=== PATIENT | male | born 1960 | race Caucasian/White ===

== ENCOUNTER 2024-09-16 05:43 | Inpatient (IN) | payer BC ==
[~2024-09-16] VITALS: Ht 188 cm; Wt 136.4 kg
[2024-09-16] VITALS (9 sets, daily range): BP systolic 112–142; BP diastolic 64–86; PULSE 69–96; RESP 14–21; TEMP 97.1–98; O2SAT 97–100
[2024-09-16 06:39] LABS: MEAN PLATELET VOLUME 8.4 FL (7.4-10.4); RED CELL DISTRIBUTION WIDTH 12.9 % (11.5-14.5)
--- NOTE | 2024-09-16 06:53 | Physician Documentation ---
History of Present Illness ~ Chief Complaint: Chest Pain Stated Complaint: SOB,CHEST PAIN Time Seen by MD: 06:26 Source: patient (6) HPI Patient comes in for evaluation of cough and chest pain. He reports he was on a fishing trip in [place], and has been sick all week, with a severe cough productive of green phlegm, sore throat, and some congestion. He also reports some shortness of breath, but this has been going on and worsening over the last six months or so. He saw While in [place], was put on an unknown antibiotic, which is dosed daily, and started taking them about five days ago. Patient flew home this morning to [place], and drove back to [place] from [place]. As he was arriving back in [facility] he began to have a heavy substernal chest pain which radiated into his back, and associated tightness in his throat, which came in waves. The back pain is now resolving. Patient has had some night sweats this week, does not know if he had a temperature, appears to have been afebrile at the doctor's office. He does not note any calf pain or asymmetrical swelling, or current edema, although he has had some edema over the last few months. No cardiac history, reports he had a negative stress test years ago,, patient takes testosterone. Pt takes 2 low dose aspirin daily Medication Reconciliation Allergies: Uncoded Allergies: SULFA (Adverse Reaction, Mild, 09/16/24) Scheduled Aspirin (Aspirin), 1 TAB PO DAILY, (Reported) Prednisone* (Prednisone*), 1 TAB PO BID, (Reported) Testosterone (Testosterone), 4 TOP DAILY, (Reported) Miscellaneous Medications Sumatriptan (Sumatriptan), (Reported) Past Medical History Past Medical History: Migraine Other Past Medical History: Morbid obesity, borderline diabetes, Smoking Status: Never smoker Alcohol Use: Occasionally Drug Use: none Review of Systems All Other Systems at this time: Reviewed and Negative Physical Exam Vital Signs: Temperature: 97.7, Heart Rate: 88, Respiratory Rate: 20, BP: 155/90, Pulse Oximetry: 98, Weight: 136.360 Oxygen Flow Rate: 0 Physical Exam General: Pt is awake, alert, oriented x4 in no acute distress and well appearing. Heart rate currently 79, blood pressure 144/85. Oxygen saturation 97% on room air. Head: Normocephalic and atraumatic. Eyes: Conjunctiva normal. ENT: Mucous membranes moist. Neck: Supple. Chest: There is no accessory muscle use or retractions. No cough appreciated, but patient reports he was having wrecking spasms of cough before I came into the room. He has some faint intermittent rhonchi, and some occasional end expiratory wheeze especially with cough. Cardiac: Regular rate and rhythm without murmurs, gallops or rubs. Palpation of the chest wall is normal. Abd: Soft, nondistended, obese, mildly tender in the left lower quadrant which he reports is chronic, with normoactive bowel sounds. No guarding or rebound. Extremities: Within normal limits without cyanosis, clubbing, or edema at this time. Skin: [place], warm and dry with no significant rash appreciated. Neuro: Cranial nerves II-XII grossly intact. The gait is normal. Progress Results/Orders Results/Orders Orders - ISACC MASTERSON MD Chest,Single View (09/16/24 06:30) Monitor (09/16/24 06:30) Saline Lock (09/16/24 06:30) Oxygen (09/16/24 06:30) Hs Troponin I W Calculations (09/16/24 08:30) Hs Troponin I W Calculations (09/16/24 09:30) Culture Blood (09/16/24 06:37) Page Hospitalist (09/16/24 07:01) Fill Out Med Reconciliation (09/16/24 07:01) Completed Orders - ISACC MASTERSON MD Chest,Single View (09/16/24 06:30) Cbc/Diff (09/16/24 06:30) BMP (09/16/24 06:30) PBNP (09/16/24 06:30) Hs Troponin I W Calculations (09/16/24 06:30) Lacticsepsis (09/16/24 06:37) D-Dimer (09/16/24 07:00) Medications Received in ER Medications (Trade) Dose Ordered Sig/Darian Route PRN Reason Start Time Stop Time Status Last Admin Dose Admin (Zofran 4mg/2ml vial) 4 mg Q6H PRN IV nausea/vomiting 09/16/24 07:35 09/16/24 07:53 4 MG Vital Signs 09/16/24 09/16/2425 05:56 06:35 06:51 Temp 97.7 Pulse 88 79 Resp 20 14 B/P (MAP) 155/90 144/86 (105) Pulse Ox 98 98 98 O2 Delivery Room Air* O2 Flow Rate 0 0 0 FiO2 21 Laboratory Tests Test 09/16/24 06:10 White Blood Count 9.0 Red Blood Count 5.38 Hemoglobin 16.5 Hematocrit 48.0 Mean Corpuscular Volume 89.2 Mean Corpuscular Hemoglobin 30.7 Mean Corpuscular Hemoglobin Concent 34.5 Red Cell Distribution Width 12.9 Platelet Count 203 Mean Platelet Volume 8.4 Neutrophils (%) (Auto) 67.0 Lymphocytes (%) (Auto) 21.7 Monocytes (%) (Auto) 7.5 Eosinophils (%) (Auto) 3.3 Basophils (%) (Auto) 0.5 Neutrophils # (Auto) 6.0 Lymphocytes # (Auto) 2.0 Monocytes # (Auto) 0.7 Eosinophils # (Auto) 0.3 Basophils # (Auto) 0.0 CBC Comment D-Dimer 1.83 H D-Dimer Comment Sodium Level 136 Potassium Level 3.5 Chloride Level 101 Carbon Dioxide Level 28.0 Anion Gap 7 L Blood Urea Nitrogen 17 Creatinine 1.16 H Estimated GFR/1.73 m2 64 BUN/Creatinine Ratio 14.7 Glucose Level 310 H Lactic Acid Level 1.2 Calcium Level 8.9 Troponin I High Sensitivity 5 Pro-B-Type Natriuretic Peptide 37 Albumin 3.5 Chemistry Comments EKG/XRAY/CT/US/VASC/MRI EKG : Indication: chest pain EKG Rate: 90 EKG: NSR, no ST T wave changes, ST elevation, abnormal Q waves EKG Blocks: none [place]: normal Consults/PCP Consults/PCP : Time Call Requested: 07:02 Consult Reason/Comments: Hospitalist Additional Comment [id number] Case d/w resident on Dr. Chua's service. He will evaluate for admission. Heart Score: Heart Score Response (Comments) Value History Highly Suspicious 2 EKG Normal 0 Age 45-64 1 Risk Factors 1 or 2 risk factors 1 Troponin Normal limit 0 Total 4 Medical Decision Making Additional Information Patient presenting with chest pain, cough, after recent out of town trip and long travel day. Immediate concerns include pulmonary embolism, acute coronary ischemia, pneumonia. Initial workup showing no signs of sepsis, chest x-ray clear without evidence of obvious infiltrate. Initial EKG nondiagnostic for any cardiac ischemia and 1st troponin within normal limits. Patient without any leg swelling or pain, is not significantly short of breath, has no tachycardia, tachypnea, or hypoxia to suggest pulmonary embolism, although testosterone use is a risk factor. Patient's D-dimer is currently pending. Patient to be admitted to the hospitalist service for further evaluation and management including serial troponins, cardiology consultation as indicated, and following up on further PE workup. Departure Time of Disposition: 07:03 Admitted to Inpatient Unit: yes, to hospitalist Impression: Primary Impression: Chest pain Qualified Codes: R07.9 - Chest pain, unspecified Additional Impression: Hyperglycemia Condition: Guarded Referrals: NO PRIMARY CARE PROVIDER (PCP) Education Educated: Patient Educated regarding: diagnosis, treatment Signature Scribe Signature: Attestation: ISACC MASTERSON MD Sep 16, 2024 06:53
--- NOTE | 2024-09-16 06:54 | RADIOLOGY REPORT ---
CHEST RADIOGRAPH Indication: CP Technique: Single frontal view of the chest was obtained Comparison: None IMPRESSION: Heart appears normal in size. The lungs appear clear without focal airspace opacity, effusion, or pn eumothorax. Left clavicular hardware.
[2024-09-16] MEDS ORDERED: ASPI-1265 PO (06:56)
[2024-09-16] MEDS ORDERED: PRED20TA PO (06:56)
[2024-09-16] MEDS ORDERED: TEST75GE10 TOP (06:56)
[2024-09-16] MEDS ORDERED: SUMA20SP8 (06:56)
[2024-09-16 06:59] LABS: CREATININE 1.16 MG/DL (0.60-1.10); PRO BRAIN NATRIURETIC PEPTIDE 37 PG/ML (0-125); TOTAL CARBON DIOXIDE 28.0 MMOL/L (24-32); eCRCL 77 ML/MIN; eGFR 64 ML/MIN
[2024-09-16] MEDS ORDERED: HYDROcodone/acetaminophen 10/325mg tab PO PRN (07:35)
[2024-09-16] MEDS ORDERED: potassium Cl 20 mEq SR tablet PO PRN ×2 (07:35)
[2024-09-16] MEDS ORDERED: magnesium Cl slow-release 64mg tablet PO PRN (07:35)
[2024-09-16] MEDS ORDERED: mag hydrox/Alum hydrox/simeth 30ml oral suspension PO PRN (07:35)
[2024-09-16] MEDS ORDERED: HYDROcodone/acetaminophen 5mg/325mg tablet PO PRN (07:35)
[2024-09-16] MEDS ORDERED: potassium Cl 40MEQ/1/2NS 520ml 520 ML IV PRN (07:35)
[2024-09-16] MEDS ORDERED: magnesium hydroxide 30ml (MOM) UD suspension PO PRN (07:35)
[2024-09-16] MEDS ORDERED: magnesium sulf-water 4G/100mL 100 ML IV PRN (07:35)
[2024-09-16] MEDS ORDERED: magnesium sulf-water 2g/50mL 50 ML IV PRN (07:35)
[2024-09-16] MEDS ORDERED: bisacodyl 10mg suppository rectal RC PRN (07:35)
[2024-09-16] MEDS ORDERED: metoprolol tartrate 1mg/ml inj IV PRN (07:40)
[2024-09-16] MEDS ORDERED: aminophylline 250mg/10ml inj. IV PRN (07:40)
[2024-09-16] MEDS: ondansetron/PF 4mg/2ml inj IV PRN (07:53)
[2024-09-16] MEDS: normal saline 1000ml 1,000 ML IV SCH (08:30)
--- NOTE | 2024-09-16 08:36 | RADIOLOGY REPORT ---
CTA Chest with intravenous contrast INDICATION: possible PE , elevated D-dimer COMPARISON: DI CHEST,SINGLE VIEW on DOS: 09/16/24 TECHNIQUE: Multidetector spiral CTA of the chest was performed of the chest with 100 cc of intravenou s contrast. PULMONARY ANGIOGRAPHY PROTOCOL was utilized using a bolus-tracking technique centered on the main pulmonary artery. Coronal and sagittal multiplanar and MIP reformats were performed. Radiation Dose : 1. Chest: CTDI volume is 24.9 mGy. Dose-length product is 970.2 mGy*cm The dose indicators for CT are the volume Computed Tomography (CT) Dose Index (CTDIvol) and the Dose Length Product (DLP), and are measured in units of mGy and mGy-cm, respectively. These indicators are not patient dose, but values generated from the CT scanner acquisition factors. The report includes radiation exposure data for exposures received during this examination. FINDINGS: Pulmonary artery: No central, lobar or proximal segmental pulmonary embolus. Lower neck: Unremarkable thyroid. Lungs: No consolidation or nodule. Central airways: Patent. Pleura: No pneumothorax. No pleural effusions. Heart/Vascular Structures: The heart is enlarged. No pericardial effusion. Thoracic aorta is normal i n caliber. No aneurysm or dissection. Lymph Nodes: No mediastinal or hilar lymphadenopathy. Esophagus:Grossly unremarkable. Musculoskeletal: Old right rib fractures. Chronic deformity of the bilateral clavicles and postsurgi mady changes in the left clavicle. Body wall: Unremarkable. Upper abdomen: Unremarkable. IMPRESSION: 1. No evidence of pulmonary embolism. 2. Cardiomegaly.
[2024-09-16] MEDS: heparin, porcine 5000 units/ml vial SQ SCH (09:03)
--- NOTE | 2024-09-16 09:05 | ELECTROCARDIOGRAPH REPORT ---
[facility] Test Date: 2024-09-16 Test Time: 05:53:08 Pat Name: DAVID SHABAZZ Department: EMERGENCY ROOM Room: [place] [address] Gender: M [employer] H[employer] Attacher: RAMIRO : 1960 Requested By: DEPARTMENT EMERGENCY Order Number: [id number] Reading MD: Dr. Juan Francisco Donaldson Measurements Intervals [place] Rate: 90 P: 39 NM: 164 QRS: 44 QRSD: 87 T: 63 QT: 346 QTc: 424 Interpretive Statements Sinus rhythm Baseline wander in lead(s) V4 Electronically Signed On 09-16-2024 19:43:[address] Juan Francisco Donaldson Please click the below link to view image of tracing.
--- NOTE | 2024-09-16 11:46 | ELECTROCARDIOGRAPH REPORT ---
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 Juan Francisco Donaldson Measurements Intervals [place] Rate: 77 P: 61 FL: 166 QRS: 12 QRSD: 86 T: 29 QT: 525 QTc: 595 Interpretive Statements Sinus rhythm Low voltage, precordial leads Borderline T wave abnormalities Prolonged QT interval Electronically Signed On 09-16-2024 19:43:[address] Juan Francisco Donaldson Please click the below link to view image of tracing.
[2024-09-16] MEDS: regadenoson 0.4mg/5ml syringe IV PRN (12:08)
[2024-09-16] MEDS ORDERED: dextrose 50%-water 50ml dispensing syringe IV PRN ×2 (12:10)
[2024-09-16] MEDS ORDERED: DEXTROSE 15 GM of carb/4 tabs (each vial/BOTTLE has 4 tablets) PO PRN ×2 (12:10)
[2024-09-16] MEDS ORDERED: glucagon, human recombinant 1mg kit SUBCUT PRN (12:10)
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
[2024-09-16 13:18] LABS: CHOL/HDL RATIO 4.6 (0.00-4.99); LDL CHOLESTEROL 142 MG/DL (50-100)
--- NOTE | 2024-09-16 13:28 | RADIOLOGY REPORT ---
EXAM: NM NM [place] SCAN History: chest pain r/o ACS Comparison Study: CT CTA CHEST PE W/ IV CONTRAST on DOS: 09/16/24, DI CHEST,SINGLE VIEW on DOS: 09/16/24 TECHNIQUE: Resting myocardial perfusion imaging was performed approximately 30 minutes following the injection of 8.11 mCi of Tc-99m sestamibi. Peak pharmacologic stress, the patient was injected with 3 1.25 mCi of Tc-99m sestamibi. Gated post stress images were acquired in the supine and prone position s approximately 30 minutes after stress and left ventricular ejection fraction (LVEF) was calculated. Findings: The overall quality of the study is adequate. The left ventricular cavity is noted to be normal. There is no evidence of abnormal lung activity. Additionally, the right ventricle appears normal. Myocardial perfusion images demonstrate a small size, mild intensity perfusion defect in the mid infe rior wall which is fixed. Gated imaging reveals normal thickening and wall motion with a calculated LVEF of 47 % with end-diast olic volume of 106 mL at stress. Impression: 1. Small size, mild intensity perfusion defect in the mid inferior wall which is fixed, favored infar ct. No evidence of ischemia. 2. Overall gated left ventricular systolic function was normal with calculated LVEF of 47 % at stress . 3. No left ventricular dilatation.
[2024-09-16 13:37] LABS: URINE AMPHETAMINE SCREEN NEGATIVE (Neg); URINE BARBITUATE SCREEN NEGATIVE (Neg); URINE BENZODIAZEPINES SCREEN NEGATIVE (Neg); URINE CANNABINOID SCREEN NEGATIVE (Neg); URINE COCAINE SCREEN NEGATIVE (Neg); URINE METHADONE SCREEN NEGATIVE (Neg); URINE OPIATE SCREEN NEGATIVE (Neg); URINE PHENCYCLIDINE SCREEN NEGATIVE (Neg)
[2024-09-16] MEDS ORDERED: EZET10TA48 PO (16:03)
[2024-09-16] MEDS ORDERED: METF-1203 PO (16:17)
[2024-09-16] MEDS ORDERED: INSULIN LISPRO 100 UNIT/ML INSULN.PEN MULTI-DOSE SQ SCH (17:00)
--- NOTE | 2024-09-16 17:43 | DISCHARGE SUMMARY-Residence ---
Discharge Summary Providers to CC Resident Creating Document: ARELIS ANDERSMICHAEL BHAVNA, RES ~ Discharge Summary Admission Diagnosis: chest pain r/o ACS and PE Hospital Course DATE OF ADMISSION: 09/16/2024 DATE OF DISCHARGE: 09/16/2024 PATIENT IS VERY EAGAR TO GO HOME TODAY Discharge Diagnosis\Comment: Chest pain likely musculoskeletal secondary to cough from recent pneumonia Well's criteria: 4.5 Pulmonary embolism-ruled out Possible unstable angina Heart score: 5 Operations\Procedures: Amanda Consultants: None Complications: None Condition on DC: Stable New Medications: Ezetimibe (Ezetimibe) 10 Mg Tablet 1 TAB PO DAILY for 30 Days, #30 TAB 0 Refills Metformin HCl (Metformin HCl) 500 Mg Tablet 1 TAB PO Q12H for 30 Days, #60 TAB Continued Medications: Aspirin (Aspirin) 81 Mg Tab.chew 1 TAB PO DAILY for 30 Days, #30 TAB Prednisone* (Prednisone*) 20 Mg Tablet 1 TAB PO BID Sumatriptan (Sumatriptan) 20 Mg Mccormick Testosterone (Testosterone) 20.25/1.25 Gel..risk reduction counselor 4 TOP DAILY Discharge Summary: HPI: 64-year-old male patient with past medical history of prediabetes, migraine, dyslipidemia, arthritis, came to the hospital with chief complaint of chest pain. The patient reports that he recently traveled to [place]. The patient started having chest pain while the patient was returning to his house in [place]. He has a 5 hour flight, and he was a passenger while coming back to [place] from [place]. When suddenly he started having a left-sided chest pain, pressure type, seven-8/10 in intensity, with radiation to the jaw and back, which currently is 2/10 in intensity. While the patient was having this pain he also had some nausea, associated shortness of breath reason for which the patient decided to come to the hospital. Patient states that he has been experiencing some on and off chest pain during the last five years but nothing like this describing that this pain was extremely intense. As per patient he had a cardiac stress test four years ago without significant findings. The patient currently denies any shortness of breath, palpitations, urinary or intestinal symptoms. Hospital course: 64-year-old male patient came to the hospital with chief complaint of chest pain. Due to the suspicion of pulmonary embolism and while score of 4.5 CTA of the chest was obtained, showing negative result for pulmonary embolism. Also possibility of coronary artery disease was present with a heart score of 5 based on risk factors of the patient. Lexiscan was obtained which showed small size, mild intensity perfusion defect in the mid inferior wall which is fixed, favored infarct. No evidence of ischemia. Echocardiogram showed: LVEF 55-60%, are right ventricle is normal size and function, normal left ventricle size and wall thickness. Overall systolic function is normal. The patient stated the chest pain subsided by itself. The patient is eager to be discharged home. The patient remained hemodynamically stable. The patient will be discharged home. Discharge course: The patient remained hemodynamically stable. The patient will be discharged with the following instructions: Call 911 bladder come back to the emergency department if severe chest pain, palpitations, fever sensation is evidenced. Follow-up with your adult secondary education instructor Dr. capps within two weeks. Follow-up with your primary care physician within two weeks. Take ezetimibe one tablet of 10 mg daily for your cholesterol levels. Continue aspirin 81 mg daily. Continue your home medication. Physical exam: General: Well alert, well oriented, not confused, not agitated, not in acute distress, well cooperated during the physical. HEENT: Conjunctive are pink, sclerae clear, no icterus, pupil is equal in both sides, reactive to light, no ear discharge, no pharyngeal erythema or an edema. Neck: Supple, no JVD, no lymphadenopathy and thyromegaly. Chest: Equal air entry on both lungs, no additional sounds no rhonchi no wheezing at the moment. Presence of scar in the midline of the abdomen Cardiovascular: S1-S2 regular sinus rhythm and, regular rate, no gallops, no rubs, no murmurs Abdomen: No visible peristalsis, Bowel sounds present on auscultation, soft, nontender, no guarding, no rigidity Extremities: No obvious deformities, 1+ pedal edema bilaterally, capillary refill intact, peripheral pulsations are intact on both sides Central Nervous System: No focal neurological deficits, no motor or sensory weakness in all 4 extremities, could move all 4 extremities, 2+ deep tendon reflexes, negative Babinski. Musculoskeletal: No joint swelling, deformities, inflammations, and no scoliosis and back tenderness Skin: Warm and dry. Vital Signs Date Time Temp Pulse Resp B/P (MAP) Pulse Ox O2 Delivery O2 Flow Rate FiO2 8/3/25 14:55 97.3 83 21 139/79 (99) 99 Room Air 09/16/24 12:16 0.0 09/16/24 10:00 21 Laboratory Tests Test 09/16/24 06:10 09/16/24 08:11 09/16/24 08:45 09/16/24 10:15 White Blood Count 9.0 X10'3 Red Blood Count 5.38 X10'6 Hemoglobin 16.5 g/dl Hematocrit 48.0 % Mean Corpuscular Volume 89.2 FL Mean Corpuscular Hemoglobin 30.7 PG Mean Corpuscular Hemoglobin Concent 34.5 g/dL Red Cell Distribution Width 12.9 % Platelet Count 203 X10'3 Mean Platelet Volume 8.4 FL Neutrophils (%) (Auto) 67.0 % Lymphocytes (%) (Auto) 21.7 % Monocytes (%) (Auto) 7.5 % Eosinophils (%) (Auto) 3.3 % Basophils (%) (Auto) 0.5 % Neutrophils # (Auto) 6.0 X10'3 Lymphocytes # (Auto) 2.0 X10'3 Monocytes # (Auto) 0.7 X10'3 Eosinophils # (Auto) 0.3 X10'3 Basophils # (Auto) 0.0 X10'3 CBC Comment D-Dimer 1.83 MG/L FEU D-Dimer Comment Sodium Level 136 MMOL/L Potassium Level 3.5 MMOL/L Chloride Level 101 MMOL/L Carbon Dioxide Level 28.0 MMOL/L Anion Gap 7 Blood Urea Nitrogen 17 MG/DL Creatinine 1.16 MG/DL Estimated GFR/1.73 m2 64 ML/MIN BUN/Creatinine Ratio 14.7 Glucose Level 310 MG/DL Hemoglobin A1c 7.3 % Lactic Acid Level 1.2 MMOL/L Calcium Level 8.9 MG/DL Troponin I High Sensitivity 5 ng/L 5 ng/L 6 ng/L Pro-B-Type Natriuretic Peptide 37 PG/ML Albumin 3.5 G/DL Triglycerides Level 73 MG/DL Cholesterol Level 205 MG/DL LDL Cholesterol 142 MG/DL HDL Cholesterol 45 MG/DL Cholesterol/HDL Ratio 4.6 Thyroid Stimulating Hormone (TSH) 3.50 ulU/ml Chemistry Comments Troponin I High Sens Percent Delta 0 % 20 % Troponin I Hi Sens Absolute Change 0 ng/L 1 ng/L SARS-CoV-2 Antigen (Rapid) Negative Test 8/3/25 12:55 Urine Opiates Screen Negative Urine Methadone Screen Negative Urine Fentanyl Screen Negative Urine Barbiturates Screen Negative Urine Phencyclidine Screen Negative Urine Amphetamines Screen Negative Urine Benzodiazepines Screen Negative Urine Cocaine Screen Negative Urine Cannabinoids Screen Negative Drug Screen Comment Lexiscan: Small size, mild intensity perfusion defect in the mid inferior wall which is fixed, favored infarct. No evidence of ischemia. Overall gated left ventricular systolic function was normal with calculated LVEF of 47 % at stress. No left ventricular dilatation. Chest/thorax CTA: No evidence of pulmonary embolism. Cardiomegaly. Chest x-ray: Impression: Heart appears normal in size. The lungs appear clear without focal airspace opacity, effusion, or pneumothorax. Left clavicular hardware. *Problems/Diagnosis: (1) Musculoskeletal pain Status: Acute (2) Chest pain Status: Acute Total Time Spent on D/C: > 30 Minutes Date of Service: Sep 16, 2024 Billing Provider: MONCHO EVANS MD Common Visit Codes: 54382-CFT/OBS DISCH DAY >30min Problem Qualifiers (1) Chest pain: Chest pain type: unspecified Qualified Codes: R07.9 - Chest pain, unspecified CHOCHO VERA,MICHAEL BHAVNA, RES Sep 16, 2024 17:43 MONCHO EVANS MD Sep 16, 2024 18:16
--- NOTE | 2024-09-16 18:55 | CARDIOLOGY REPORT ---
APPROVED REPORT EXAM: Comprehensive 2D, Doppler, and color-flow Echocardiogram. Patient Location: 3[address] Heart Rate: 74 bpm Rhythm: SINUS Indications CHEST PAIN SHORTNESS OF BREATH Log Hooker: Deann Alvarado MD Previous echo: NONE AVAILABLE (AFTER HOURS) 2D Dimensions RVDd 3.0 cm IVSd 1.0 (0.7-1.1cm) LVDd 4.2 cm PWd 1.0 (0.7-1.1cm) IVSs 1.4 (0.8-1.2cm) LVDs 2.7 (2.5-4.0cm) PWs 1.5 (0.8-1.2cm) LVOT Diameter 2.35 (1.8-2.4cm) FS (%) 35.7 % SV 52.7 ml M-Mode Dimensions Left Atrium(MM) 4.08 (2.5-4.0cm) Aortic Root 3.57 (2.2-3.7cm) Aortic Cusp Exc 1.96 (1.5-2.0cm) Aortic Valve AoV Peak Jose Luis. 138.8 cm/s AoV VTI 28.2 cm AO Peak GR. 7.7 mmHg AO Mean GR. 5 mmHg LVOT VTI 23.99 cm LVOT Peak Jose Luis. 116.1 cm/s AVERY(VTI)/BSA 3.70 cm2/m2 AVERY (VTI) 3.70 cm2 Mitral Valve MV E Velocity 52.7 cm/s MV Peak Gr. 3 mmHg MV DECEL TIME 176 ms MV A Velocity 44.4 cm/s MV PHT 56 ms E/A Ratio 1.2 MVA (PHT) 3.93 cm2 MV VMax81.4 cm/s TDI Lateral E' P. V7.37 cm/s E/Lateral E' 7.2 Pulmonary Vein S1 Velocity 66.7 cm/s D2 Velocity 57.2 cm/s PVa Osvovccz70.3 cm/s PVa [id number] msec LEFT VENTRICLE Normal LV size and wall thickness. Overall systolic function is normal. LVEF is 55-60%. RIGHT VENTRICLE RV is normal size and function. ATRIA Left atrium is mildly dilated. AORTIC VALVE Trileaflet AV appears sclerotic without stenosis. Mild insufficiency. MITRAL VALVE Mild MV annular calcification without stenosis. Trace regurgitation. TRICUSPID VALVE TV appears structurally normal with trace regurgitation. PULMONIC VALVE Normal PV without stenosis, no insufficiency. GREAT VESSELS The aortic root is normal in size. PERICARDIUM Normal pericardium. No effusion. Other Information Study Quality: Adequate Conclusion Normal LV size and wall thickness. Overall systolic function is normal. LVEF is 55-60%. RV is normal size and function. Left atrium is mildly dilated. Trileaflet AV appears sclerotic without stenosis. Mild insufficiency. Mild MV annular calcification without stenosis. Trace regurgitation. TV appears structurally normal with trace regurgitation. Normal pericardium. No effusion.
== END 2024-09-16 17:10 | disposition home or self-care (01) | DRG 311 ==
LOC: ER 05:44 → ED HOLD 07:38 → PCU 3S 09:50
PROVIDERS: ADMIT Internal Medicine; ATTEND Internal Medicine
PROC: B32T1ZZ Computerized Tomography (CT Scan) of Left Pulmonary Artery using Low Osmolar Contrast (ICD-10-PCS; principal; 2024-09-16)
PROC: B3201ZZ Computerized Tomography (CT Scan) of Thoracic Aorta using Low Osmolar Contrast (ICD-10-PCS; 2024-09-16)
PROC: B32S1ZZ Computerized Tomography (CT Scan) of Right Pulmonary Artery using Low Osmolar Contrast (ICD-10-PCS; 2024-09-16)
PROC: 4A02XM4 Measurement of Cardiac Total Activity, External Approach (ICD-10-PCS; 2024-09-16)
PROC: 3E033HZ Introduction of Radioactive Substance into Peripheral Vein, Percutaneous Approach (ICD-10-PCS; 2024-09-16)
DX: I20.0 Unstable angina (principal); Z20.822 Contact with and (suspected) exposure to COVID-19; G43.909 Migraine, unspecified, not intractable, without status migrainosus; E78.5 Hyperlipidemia, unspecified; E66.01 Morbid (severe) obesity due to excess calories; R73.9 Hyperglycemia, unspecified; Z68.38 Body mass index [BMI] 38.0-38.9, adult; Z90.49 Acquired absence of other specified parts of digestive tract
CPT/HCPCS: 36415; 71045; 71275; 78452; 80048; 80061; 80305; 83036; 83605; 83880; 84443; 84484; 85025; 85379; 87040; 87081; 87811; 93005; 93017; 93306; 99285; A9500; G0378; J1644; J1815; J2405; J2785; J7030; Q9967